=== PATIENT | male | born 1980 | race Caucasian/White ===

== ENCOUNTER 2018-12-08 16:26 | Emergency (ER) | payer SELFPAY ==
[~2018-12-08] VITALS: Ht 162.6 cm; Wt 67.3 kg
[2018-12-08 16:30] VITALS: TEMP 98
[2018-12-08 18:22] VITALS: BP 127/88; PULSE 87
== END 2018-12-08 19:12 | disposition home or self-care (01) ==
LOC: COL.ER 16:26
DX: Z03.89 Encounter for observation for other suspected diseases and conditions ruled out (principal)

== ENCOUNTER 2019-04-14 05:55 | Day surgery (SDC) | payer MEDICAID ==
[~2019-04-14] VITALS: Ht 162.6 cm; Wt 71.0 kg
[2019-04-14 06:48] VITALS: BP 125/67; PULSE 72; TEMP 98.1
[2019-04-14] MEDS ORDERED: TRILEPTAL 300M300 MG PO (06:53)
[2019-04-14] MEDS ORDERED: TRILEPTAL 150M150 MG PO (06:54)
[2019-04-14 09:10] VITALS: BP 131/70; PULSE 56
--- NOTE | 2019-04-14 09:10 | NUR ---
Patient returns to room 8 per cart from PACU and is awake and looking around. IV fluids infusing and site is wrapped with coban. Patient is having scant bloody drainage from nares. Temp 97.3. Patient will not leave O2 sat monitor on. Parents in room. Siderails up x2 and call light in reach.
[2019-04-14 09:25] VITALS: BP 121/82; PULSE 72
--- NOTE | 2019-04-14 09:25 | NUR ---
Eating blueberry muffin and drinking juice with assist from family. Continues to have scant bloody drainage from nares.
[2019-04-14] MEDS ORDERED: TYLENOL/CODEINE1 ML PO (09:28)
[2019-04-14 09:40] VITALS: BP 138/73; PULSE 74
--- NOTE | 2019-04-14 09:40 | NUR ---
Tolerated muffin and juice. Drainage becoming less. IV discontinued and site covered with coban. Assisted up to the bathroom with assist of step father. Patient able to urinate and returns to room. Assisted patient with dressing.
--- NOTE | 2019-04-14 09:55 | NUR ---
Dismissal instructions given and signed. Given script for Tylenol #3. Provided copy of dismissal instructions.
--- NOTE | 2019-04-14 09:57 | NUR ---
Patient escorted out ambulatory to the front door accompanied by parents with instructions in hand.
[2019-04-14 14:41] VITALS: PULSE 89; TEMP 96.8
== END 2019-04-14 09:57 | disposition home or self-care (01) ==
LOC: SDCO 05:55
DX: T17.1XXA Foreign body in nostril, initial encounter (principal); J34.2 Deviated nasal septum; R62.50 Unspecified lack of expected normal physiological development in childhood; Z88.0 Allergy status to penicillin; Z88.1 Allergy status to other antibiotic agents; Z88.8 Allergy status to other drugs, medicaments and biological substances
CPT/HCPCS: J0330; J1100; J2405; J2704; J3010; J7120

== ENCOUNTER 2020-06-14 17:52 | Emergency (ER) | payer MEDICAID ==
[~2020-06-14] VITALS: Ht 165.1 cm; Wt 72.7 kg
[~2020-06-14 17:52] MED LIST: TRILEPTAL 150M150 MG PO; TRILEPTAL 300M300 MG PO; TYLENOL/CODEINE1 ML PO
[2020-06-14 17:58] VITALS: TEMP 98.5
[2020-06-14 20:45] VITALS: BP 124/75; PULSE 84
[2020-06-14 20:52] LABS: CALCIUM 9.1 mg/dL (8.4-10.2); CREATININE, serum 0.91 (0.66-1.25); POTASSIUM 4.2 mmol/L (3.4-5.0)
== END 2020-06-14 21:13 | disposition home or self-care (01) ==
LOC: COL.ER 17:52
PROVIDERS: Nurse Practitioner
DX: T39.311A Poisoning by propionic acid derivatives, accidental (unintentional), initial encounter (principal); Z88.0 Allergy status to penicillin; Z88.1 Allergy status to other antibiotic agents; Z88.3 Allergy status to other anti-infective agents

== ENCOUNTER 2021-04-13 10:30 | Outpatient (RCR) | payer MEDICAID | END 2021-04-19 | disposition home or self-care (01) | LOC: WSST | DX: G93.1 Anoxic brain damage, not elsewhere classified (principal) ==

== ENCOUNTER 2021-07-20 10:30 | Outpatient (RCR) | payer MEDICAID | END 2021-07-22 | disposition home or self-care (01) | LOC: WSST | DX: F80.1 Expressive language disorder (principal) ==

== ENCOUNTER 2021-08-08 10:30 | Outpatient (RCR) | payer MEDICAID | END 2021-08-10 | disposition home or self-care (01) | LOC: WSST | DX: F80.2 Mixed receptive-expressive language disorder (principal) ==

== ENCOUNTER 2021-09-07 10:30 | Outpatient (RCR) | payer MEDICAID | END 2021-09-10 | disposition home or self-care (01) | LOC: WSST | DX: F80.2 Mixed receptive-expressive language disorder (principal) ==

== ENCOUNTER 2021-10-05 10:30 | Outpatient (RCR) | payer MEDICAID | END 2021-10-08 | disposition home or self-care (01) | LOC: WSST | DX: F80.2 Mixed receptive-expressive language disorder (principal) ==

== ENCOUNTER 2021-11-02 10:30 | Outpatient (RCR) | payer MEDICAID | END 2021-11-08 | disposition home or self-care (01) | LOC: WSST | DX: F80.2 Mixed receptive-expressive language disorder (principal); G93.1 Anoxic brain damage, not elsewhere classified ==

== ENCOUNTER 2021-11-30 10:30 | Outpatient (RCR) | payer MEDICAID | END 2021-12-08 | disposition still patient (30) | LOC: WSST | DX: F80.2 Mixed receptive-expressive language disorder (principal); Z87.820 Personal history of traumatic brain injury ==

== ENCOUNTER 2021-12-28 10:30 | Outpatient (RCR) | payer MEDICAID | END 2022-01-08 | disposition home or self-care (01) | LOC: WSST | DX: F80.2 Mixed receptive-expressive language disorder (principal) ==

== ENCOUNTER 2022-01-18 08:32 | Outpatient (RCR) | payer MEDICAID | END 2022-02-07 | disposition home or self-care (01) | LOC: WSST | DX: F80.2 Mixed receptive-expressive language disorder (principal) ==

== ENCOUNTER 2022-02-15 08:09 | Outpatient (RCR) | payer MEDICAID | END 2022-03-10 | disposition home or self-care (01) | LOC: WSST | DX: F80.2 Mixed receptive-expressive language disorder (principal) ==

== ENCOUNTER 2022-02-19 09:45 | Day surgery (SDC) | payer MEDICAID ==
[~2022-02-19] VITALS: Ht 162.6 cm; Wt 77.9 kg
[2022-02-19 11:17] VITALS: BP 111/75; TEMP 98.5
[2022-02-19 11:50] VITALS: BP 116/102; PULSE 86
[2022-02-19 12:05] VITALS: BP 119/86; PULSE 82
--- NOTE | 2022-02-19 12:08 | NUR ---
1150 - PT arrives and was settled by Jillian TAM. Verbal report then obtained: monitors applied and vitals obtained. PT denies nausea, no vomiting. PT provided with cranberry juice, orange juice, a warm muffin and chocolate pudding per request of Freda. Call [facility] is within reach of care takers, who verbalize understanding how to use it. Will monitor per intervals.
--- NOTE | 2022-02-19 12:13 | NUR ---
1205 - Vitals obtained. PT provided with additonal Clinch juice, cranberry juice and another warm muffin per request. No vomiting. Call [employer] remains within reach. PT was assisted with repositioning in chair.
[2022-02-19 12:20] VITALS: BP 121/88; PULSE 82
--- NOTE | 2022-02-19 13:15 | NUR ---
1220 - VSS. IV discontinued. Catheter tip intact. Pressure dressing applied. No redness or swelling noted. DC instructions and educational material reviewed with Freda and Finesse, both verbalized understanding. Freda requested three additional copies of educational material and DC instructions. RN provided three additonal copies; PT was assisted changing by farmworker diversified crops. 1240 - Finesse requested the RN sign a form; however, the form requires "doctor/clinician signature"; RN states she could not sign, but would locate to fufill request. Finesse and Freda verbalized understanding, call [facility] remains within reach if needed. 1300 - Finesse was provided with orginal copy of the form, which was filled out by . Copy placed on chart by RN. RN then dismissed the PT to the PT entrence via wheelchair; PT transerred into the care of facility transportation. Finesse has DC packet and PT personal belongings.
== END 2022-02-19 13:15 | disposition home or self-care (01) ==
LOC: SDCO 09:45
DX: K64.0 First degree hemorrhoids (principal)
CPT/HCPCS: J2704; J7120